=== PATIENT | female | born 1975 | race Caucasian/White ===

== ENCOUNTER 2016-07-07 02:19 | Emergency (ER) | payer OTHER ==
[~2016-07-07] VITALS: Ht 170.2 cm; Wt 119.7 kg
[2016-07-07] MEDS ORDERED: BACLOFEN10 MG PO (04:13)
[2016-07-07] MEDS ORDERED: MOTRIN600 MG PO (04:13)
[2016-07-07 04:48] VITALS: BP 130/71
== END 2016-07-07 04:49 | disposition home or self-care (01) ==
LOC: EME 02:19
DX: S20.211A Contusion of right front wall of thorax, initial encounter (principal); S20.01XA Contusion of right breast, initial encounter; M25.561 Pain in right knee; V49.40XA Driver injured in collision with unspecified motor vehicles in traffic accident, initial encounter; Z88.6 Allergy status to analgesic agent
CPT/HCPCS: 71101; 73564; 99281; 99284; J1885